=== PATIENT | male | born 1935 | race Caucasian/White ===

== ENCOUNTER 2022-01-14 16:33 | Emergency (ER) | payer MEDICARE, BC ==
[~2022-01-14] VITALS: Ht 177.8 cm; Wt 70.5 kg
[~2022-01-14 16:33] MED LIST: DONE10TA44 PO; DONE5TAB7 PO; MEMA5TAB PO
--- NOTE | 2022-01-14 18:25 | NUR ---
ASSUMED CARE OF PT. PT WAKES UP WHEN I WALK IN THE ROOM. HE TOLD ME "I DON'T KNOW WHAT IS GOING ON". I LET HIM KNOW HE WAS IN THE HOSPITAL. SOME WORDS FROM PT ARE DIFFICULT TO UNDERSTAND SO ENGAGING IN CONVERSATION IS A LITTLE DIFFICULT. HE GOES BACK TO SLEEPING WHEN I WALK OUT OF ROOM. I SPOKE TO DR MCBRIDE CONCERNING WHAT ORDERS SHOULD BE MADE FOR PATIENT. PT'S POLST IS AT BEDSIDE. DR MCBRIDE HAS SPOKEN WITH OVER THE PHONE. DR Thompson WILL PUT IN ORDERS FOR BASIC LABS. PT ON TELEMETRY MONITORING.
[2022-01-14 19:07] LABS: BASOPHILS # (AUTO) 0.1 X10'3 (0-0.2); EOSINOPHILS # (AUTO) 0.4 X10'3 (0-0.9); EOSINOPHILS % (AUTO) 6.1 % (0-6); HEMATOCRIT 34.4 % (42.0-52.0); HEMOGLOBIN 11.3 g/dl (14.0-17.9); LYMPHOCYTES % (AUTO) 32.7 % (21-51); MEAN CORPUSCULAR HEMOGLOBIN 31.1 PG (27.0-31.0); MEAN CORPUSCULAR HGB CONC 32.8 g/dL (33.0-36.5); MEAN CORPUSCULAR VOLUME 94.7 FL (78-98); MEAN PLATELET VOLUME 8.4 FL (7.4-10.4); MONOCYTES # (AUTO) 0.7 X10'3 (0-0.9); NEUTROPHILS % (AUTO) 49.2 % (42-75); PLATELET COUNT 224 X10'3 (140-440); RED BLOOD COUNT 3.63 X10'6 (4.70-6.10); RED CELL DISTRIBUTION WIDTH 13.9 % (11.5-14.5)
[2022-01-14 19:23] LABS: ALANINE AMINOTRANSFERASE 23 U/L (12-78); ALBUMIN 3.2 G/DL (3.4-5.0); ALBUMIN/GLOBULIN RATIO 0.8 (1.1-1.5); ALKALINE PHOSPHATASE 68 IU/L (46-116); ANION GAP 7 (8-16); ASPARTATE AMINO TRANSFERASE 20 U/L (10-37); BILIRUBIN,TOTAL 0.2 MG/DL (0.1-1.0); BLOOD UREA NITROGEN 33 MG/DL (7-18); BUN/CREATININE RATIO 20.5 (5.4-32.0); CALCIUM 9.1 MG/DL (8.5-10.1); CHLORIDE 110 MMOL/L (99-107); CREATININE 1.61 MG/DL (0.60-1.10); GLUCOSE 92 MG/DL (70-104); POTASSIUM 4.1 MMOL/L (3.5-5.1); SODIUM 145 MMOL/L (135-145); TOTAL CARBON DIOXIDE 28.2 MMOL/L (24-32); eGFR 41 ML/MIN
--- NOTE | 2022-01-14 20:07 | NUR ---
PT GOT OUT OF BED AND STARTED WANDERING OUT WHILE I WAS ADMINISTERING CRITICAL MEDS TO A PT IN A ROOM NEXT TO HIM. LAW WRITER RADIO CALLED TECH TO COME HELP PUT PT BACK IN BED.
--- NOTE | 2022-01-14 20:58 | NUR ---
PT STARTED WANDERING AGAIN. PT REDIRECTED BACK TO BED AND REORIENTED TO SITUATION. BED ALARM PUT ON.
[2022-01-14 21:01] LABS: CLARITY,URINE CLEAR (Clear); COLOR,URINE YELLOW (Yellow); GLUCOSE, URINE NEGATIVE (Neg); KETONES,URINE NEGATIVE (Neg); LEUKOCYTE ESTERASE ,URINE NEGATIVE (Neg); NITRITES, URINE NEGATIVE (Neg); OCCULT BLOOD,URINE NEGATIVE (Neg); PROTEIN,URINE NEGATIVE (Neg); UROBILINOGEN,URINE 0.2 E.U/dL (0.2-1.0)
[2022-01-14 21:06] LABS: UA COLLECTION TYPE STRAIGHT CATH
--- NOTE | 2022-01-14 21:22 | NUR ---
SPOKE TO ALEC FROM [facility] AND GAVE REPORT ON PT. PT HAS BEEN DISCHARGED. SHE WILL CALL ME BACK TO HOW THEY WANT US TO TRANSPORT PT BACK TO [facility].
--- NOTE | 2022-01-14 21:29 | NUR ---
[facility] CALLED BACK. ROSA GOODSON NEEDDS US TO CALL FAMILY TO FIGURE OUT TRANSPORTATION. I CALLED PT'S , WHO ALSO HAPPENS TO BE PT'S POA, BUT DID NOT REACH HER; LEFT A VOICE MESSAGE.
--- NOTE | 2022-01-14 21:50 | NUR ---
CALLED AGAIN. SHE PICKED PHONE UP. SHE IS UNABLE TO PICK PT UP DURING THE NIGHT AND SHE HAS NO RELATIVES IN THE AREA. I TOLD HER WE WOULD TALK TO CHARGE MASTER ANALYST AND GIVE HER AN UPDATE WHEN WE HAVE ONE.
--- NOTE | 2022-01-14 22:00 | NUR ---
JES[facility]S NAVA IS WORKING TO SEE IF PT QUALIFIES FOR [facility].
--- NOTE | 2022-01-14 23:17 | NUR ---
[facility] ARRIVED. THEY WERE GIVEN PACKET. AND PATIENT WAS DISCHARGED.
--- NOTE | 2022-01-14 23:18 | NUR ---
[facility] AT [facility] IS AWARE PT IS HEADED BACK
[2022-01-14 23:19] VITALS: BP 106/54
--- NOTE | 2022-01-14 23:19 | NUR ---
IS AWARE THAT PT IS HEADED BACK TO [facility]
== END 2022-01-14 23:23 | disposition home or self-care (01) ==
LOC: ER 16:34
DX: R41.82 Altered mental status, unspecified (principal); R53.1 Weakness; F03.90 Unspecified dementia, unspecified severity, without behavioral disturbance, psychotic disturbance, mood disturbance, and anxiety; I10 Essential (primary) hypertension; Z79.899 Other long term (current) drug therapy
CPT/HCPCS: 36415; 80053; 81003; 85025; 93005; 99285

== ENCOUNTER 2022-03-23 01:51 | Emergency (ER) | payer MEDICARE, BC ==
[~2022-03-23] VITALS: Ht 170.2 cm; Wt 65.0 kg
[2022-03-23 03:17] LABS: BASOPHILS % (AUTO) 0.3 % (0-1); EOSINOPHILS % (AUTO) 0.5 % (0-6); HEMATOCRIT 35.3 % (42.0-52.0); HEMOGLOBIN 11.9 g/dl (14.0-17.9); LYMPHOCYTES # (AUTO) 0.4 X10'3 (1.1-4.8); LYMPHOCYTES % (AUTO) 7.3 % (21-51); MEAN CORPUSCULAR HEMOGLOBIN 32.2 PG (27.0-31.0); MEAN CORPUSCULAR HGB CONC 33.8 g/dL (33.0-36.5); MEAN CORPUSCULAR VOLUME 95.3 FL (78-98); MEAN PLATELET VOLUME 9.6 FL (7.4-10.4); MONOCYTES # (AUTO) 1.1 X10'3 (0-0.9); MONOCYTES % (AUTO) 17.8 % (2-12); NEUTROPHILS # (AUTO) 4.5 X10'3 (1.8-7.7); NEUTROPHILS % (AUTO) 74.1 % (42-75); PLATELET COUNT 168 X10'3 (140-440); RED CELL DISTRIBUTION WIDTH 15.3 % (11.5-14.5)
[2022-03-23 03:35] LABS: ALANINE AMINOTRANSFERASE 34 U/L (12-78); ALBUMIN 3.5 G/DL (3.4-5.0); ALBUMIN/GLOBULIN RATIO 0.8 (1.1-1.5); ALKALINE PHOSPHATASE 76 IU/L (46-116); ANION GAP 8 (8-16); BILIRUBIN,TOTAL 0.3 MG/DL (0.1-1.0); BLOOD UREA NITROGEN 30 MG/DL (7-18); BUN/CREATININE RATIO 18.2 (5.4-32.0); CALCIUM 9.2 MG/DL (8.5-10.1); CHLORIDE 105 MMOL/L (99-107); CREATININE 1.65 MG/DL (0.60-1.10); GLUCOSE 98 MG/DL (70-104); MAGNESIUM 2.1 MG/DL (1.5-2.4); SODIUM 141 MMOL/L (135-145); TOTAL CARBON DIOXIDE 27.8 MMOL/L (24-32); TOTAL PROTEIN 8.1 G/DL (6.4-8.2); eGFR 39 ML/MIN
[2022-03-23 03:36] LABS: ASPARTATE AMINO TRANSFERASE 39 U/L (10-37); POTASSIUM 4.5 MMOL/L (3.5-5.1)
[2022-03-23 04:10] LABS: CLARITY,URINE CLEAR (Clear); COLOR,URINE YELLOW (Yellow); GLUCOSE, URINE NEGATIVE (Neg); KETONES,URINE TRACE mg/dl (Neg); LEUKOCYTE ESTERASE ,URINE NEGATIVE (Neg); NITRITES, URINE NEGATIVE (Neg); OCCULT BLOOD,URINE SMALL (Neg); PROTEIN,URINE NEGATIVE (Neg); UROBILINOGEN,URINE 0.2 E.U/dL (0.2-1.0)
[2022-03-23 04:16] LABS: UA COLLECTION TYPE CLN CATCH MIDSTREAM
[2022-03-23 04:18] LABS: WBC,URINE 0-4 /HPF (0-4)
[2022-03-23 04:19] LABS: BACTERIA,URINE NONE SEEN /HPF (Neg); MUCUS STRANDS FEW /LPF (Neg); SQUAMOUS EPITHELIAL CELL,UR FEW /LPF (FEW)
[2022-03-23] MEDS ORDERED: BEBTELOVIMAB 175 MG/2 ML VIAL IV ONE (04:55)
[2022-03-23] MEDS ORDERED: hydrocortisone sod succ/PF 100mg/2ml inj. IV PRN (05:00)
[2022-03-23] MEDS ORDERED: diphenhydrAMINE 50 mg/ml inj IV PRN (05:00)
[2022-03-23] MEDS ORDERED: acetaminophen 325mg tablet PO PRN (05:00)
[2022-03-23] MEDS ORDERED: epiNEPHrine 1 mg/ml inj IM PRN (05:00)
[2022-03-23] MEDS ORDERED: famotidine/PF 10 mg/ml inj IV PRN (05:00)
[2022-03-23] MEDS ORDERED: albuterol 2.5 MG/3 ML nebule NEB PRN (05:00)
[2022-03-23 05:19] LABS: PLATELET ESTIMATE NORMAL; TOTAL CELLS COUNTED 100
[2022-03-23] MEDS ORDERED: clindamycin 300mg/D5W 50mL 50 ML IV ONE (05:50)
[2022-03-23] MEDS ORDERED: CLIN150C2 PO (05:52)
--- NOTE | 2022-03-23 06:56 | NUR ---
Assumed patient care at this time. Patient is resting on stretcher.
[2022-03-23 07:18] VITALS: BP 184/97
--- NOTE | 2022-03-23 10:20 | NUR ---
[facility].
--- NOTE | 2022-03-23 10:56 | NUR ---
CALL TO [facility] DC INSTRUCTIONS AND RX DID NOT GET SENT BACK WITH HIM. SPOKE TO NITHYA REVIEWED DC INSTRUCTIONS AND RX. RX CALLED INTO [facility] AND SPOKE TO PHARM. DC INSTRUCTIONS AND COPY OF RX FAXED TO [facility] [phone]
== END 2022-03-23 12:11 | disposition home or self-care (01) ==
LOC: ER 01:51
DX: U07.1 COVID-19 (principal); L72.3 Sebaceous cyst; I10 Essential (primary) hypertension; F03.90 Unspecified dementia, unspecified severity, without behavioral disturbance, psychotic disturbance, mood disturbance, and anxiety; Z88.8 Allergy status to other drugs, medicaments and biological substances; Z79.2 Long term (current) use of antibiotics; Z79.899 Other long term (current) drug therapy
CPT/HCPCS: 36415; 71045; 80053; 81001; 83605; 83735; 84145; 85007; 85025; 87040; 87635; 93005; 96365; 99285; C1758; C9803; J3490; M0222; Q0222